=== PATIENT | male | born 1995 | race Caucasian/White ===

== ENCOUNTER 2018-04-28 18:55 | Emergency (ER) | payer OTHER ==
[2018-04-28] MEDS: KETOROLAC 30 MG INJ IV (20:27)
[2018-04-28] MEDS: DEXAMETHASONE 10 MG/ML 1 ML INJ IV (20:27)
[2018-04-28] MEDS: SOD CHLORIDE 0.9% 1,000 ML IV (20:27)
[2018-04-28] MEDS: ACETAMINOPHEN 650MG/20.3ML CUP PO (20:37)
[2018-04-28 20:43] LABS: ADD MAN DIFF? NO
[2018-04-28 20:44] LABS: ABNORMAL IP MESSAGE 1; BASOPHIL # 0.1 10^3/ul (0.0-0.1); BASOPHILS % 0.3 % (0.0-2.0); HEMATOCRIT 44.3 % (42.0-52.0); HEMOGLOBIN 14.9 g/dl (14.0-18.0); LYMPHOCYTES # 1.9 10^3/ul (0.8-2.9); LYMPHOCYTES % 8.4 % (15.0-51.0); MEAN CORPUSCULAR HEMOGLOBIN 29.7 pg (29.0-33.0); MEAN CORPUSCULAR HGB CONC 33.6 g/dl (32.0-37.0); MEAN CORPUSCULAR VOLUME 88.4 fl (82.0-101.0); MEAN PLATELET VOLUME 9.7 fl (7.4-10.4); NEUTROPHIL # 18.2 10^3/ul (1.6-7.5); NEUTROPHILS % 81.7 % (39.0-77.0); PLATELET COUNT 342 10^3/UL (140-415); POSITIVE DIFF @See below; RED BLOOD COUNT 5.01 10^6/ul (4.70-6.10); RED CELL DISTRIBUTION WIDTH 13.1 % (11.5-14.5)
[2018-04-28 20:44] LABS: WHITE BLOOD COUNT 22.2 10^3/ul (4.8-10.8)
[2018-04-28] MEDS: CLINDAMYCIN 600 MG/D5W (PMX) 50 ML IVPB (20:46)
[2018-04-28 21:05] LABS: ANION GAP 19 (8-16); BLOOD UREA NITROGEN 12 mg/dl (7-20); CALCIUM 10.1 mg/dl (8.4-10.2); CARBON DIOXIDE 24 mmol/L (21-31); CHLORIDE 103 mmol/L (97-110); CREATININE 0.84 mg/dl (0.61-1.24); GLUCOSE 121 mg/dl (70-220); POTASSIUM 4.3 mmol/L (3.5-5.1); SODIUM 142 mmol/L (135-144)
[2018-04-28] MEDS ORDERED: SOD CHLORIDE 0.9% 100 ML (21:31)
[2018-04-28] MEDS ORDERED: IOHEXOL 300MG/ML 150 ML BTL (21:31)
[2018-04-28] MEDS: morphine 4 MG/ML VIAL IV (21:57)
[2018-04-28] MEDS: ONDANSETRON 4 MG INJ IV (21:57)
[2018-04-28] MEDS ORDERED: LIDOCAINE 1%/EPI (MDV) 50 ML INJ INJ (22:24)
== END 2018-04-29 00:11 | disposition home or self-care (01) ==
LOC: FTE 04-29 00:11 → E/R 18:55
DX: J36 Peritonsillar abscess (principal)
CPT/HCPCS: 36415; 70491; 80048; 85025; 96365; 96375; 99285-25

== ENCOUNTER 2018-06-23 08:33 | Emergency (ER) | payer OTHER ==
[2018-06-23] MEDS: METHYLPREDNISOLONE 125 MG INJ IM (09:25)
[2018-06-23] MEDS: KETOROLAC 60 MG INJ IM (09:26)
[2018-06-23] MEDS: CLINDAMYCIN 300 MG INJ IM (09:50)
[2018-06-23] MEDS ORDERED: BENZOCAINE 20% 56 ML SPRAY TOP (10:00)
[2018-06-23] MEDS ORDERED: PHENOL 1.4% SOLN 180 ML BTL MT (10:00)
[2018-06-23] MEDS: PHENOL 1.4% SOLN 180 ML BTL MT (10:02)
[2018-06-23] MEDS: LIDOCAINE 4% SOLUTION 50 ML BTL TOP (10:21)
== END 2018-06-23 11:59 | disposition home or self-care (01) ==
LOC: FTE 08:33
DX: J36 Peritonsillar abscess (principal); F17.210 Nicotine dependence, cigarettes, uncomplicated
CPT/HCPCS: 42700; 94664; 96372; 99284-25

== ENCOUNTER 2018-08-14 12:37 | Emergency (ER) | payer OTHER ==
[2018-08-14] MEDS: ACETAMINOPHEN 500 MG TAB PO (14:04)
== END 2018-08-14 14:24 | disposition home or self-care (01) ==
LOC: FTE 12:37
DX: S00.83XA Contusion of other part of head, initial encounter (principal); F17.210 Nicotine dependence, cigarettes, uncomplicated; R40.2142 Coma scale, eyes open, spontaneous, at arrival to emergency department; R40.2252 Coma scale, best verbal response, oriented, at arrival to emergency department; R40.2362 Coma scale, best motor response, obeys commands, at arrival to emergency department; W01.10XA Fall on same level from slipping, tripping and stumbling with subsequent striking against unspecified object, initial encounter; Y92.410 Unspecified street and highway as the place of occurrence of the external cause
CPT/HCPCS: 99283